=== PATIENT | female | born 2005 | race Hispanic/Latino ===

== ENCOUNTER 2025-08-12 01:30 | Emergency (ER) | payer SELFPAY ==
[~2025-08-12] VITALS: Ht 157.5 cm; Wt 68.0 kg
--- NOTE | 2025-08-12 01:33 | NUR ---
UA CUP PROVIDED
[2025-08-12 01:46] VITALS: TEMP 97.8
[2025-08-12] MEDS: 0.9%NACL 1000ML 1,000 ML IV SCH (02:39)
[2025-08-12 02:48] LABS: IMMATURE GRANULOCYTE ABSOLUTE 0.03 K/uL (0-1); NUCLEATED RED BLOOD CELLS 0.0 % (0.0-0.19); PLATELET COUNT (AUTO) 317 K/uL (130-400); RED BLOOD CELL COUNT(AUTO) 4.20 MIL/uL (4.00-5.50); RED CELL DISTRIBUTION WIDTH 12.5 % (11.0-15.5); WHITE BLOOD COUNT (AUTO) 10.0 K/uL (4.8-10.8)
[2025-08-12 02:51] LABS: APPEARANCE,URINE CLEAR (CLEAR); GLUCOSE, URINE (UA) NEGATIVE (NEGATIVE); LEUKOCYTE ESTERASE ,URINE NEGATIVE Leu/uL (NEGATIVE); NITRATE,URINE NEGATIVE (NEGATIVE); OCCULT BLOOD,URINE NEGATIVE (NEGATIVE)
[2025-08-12 02:52] LABS: ADD UA MICROSCOPIC NO
[2025-08-12 02:53] LABS: HCG,QUALITATIVE URINE NEGATIVE (NEGATIVE)
[2025-08-12 02:57] LABS: CREATININE 0.6 mg/dL (0.5-1.0); GLOMERULAR FILTR. RATE CALC 133.0 mL/min (>90); GLUCOSE,RANDOM 89.0 mg/dL (70-105); SODIUM SERUM 140.0 mmol/L (136-145); UREA NITROGEN, BLOOD 13.0 mg/dL (7-18)
--- NOTE | 2025-08-12 03:15 | ERN ---
General Chief Complaint: Hip Pain/Injury Stated Complaint: RT HIP PAIN Time Seen by MD: 01:32 History of Present Illness Initial Comments 19-year-old female no past medical history remarkable presents to inpatient with the complaints of right hip pain. Patient states she is having hip pain for the past 24-48 hours and she only took Tylenol for the pain. She states that she has been having dysuria and pressure in her lower right abdomen. Denies any trauma to the abdomen. Denies any fever. Denies any nausea vomiting diarrhea. No similar symptoms before in the past. Allergies: Coded Allergies: No Known Allergies (Unverified Allergy, Unknown, 08/12/25) Past Medical History Past Medical History: No Pertinent History Past Surgical History: None Female( History) LMP: Aug 02, 2025 Gastrointestinal/Abdominal: (+) abdominal pain Genitourinary: (+) dysuria, (+) pain Physical Exam General Appearance: (+) no apparent distress Orientation: (+) alert, (+) oriented x 3 Head/Face Trauma: No Eye: bilateral eye normal inspection, bilateral eye PERRL, bilateral eye EOMI Ear, Nose, Throat: (+) hearing grossly normal, (+) normal ENT inspection, (+) moist mucous membraine Neck: (+) normal inspection Respiratory: (+) chest non-tender, (+) lungs clear Heart: (+) regular; (-) murmur Vascular: (+) no edema Gastrointestinal: (+) soft, (+) tender (Right lower quadrant, right CVA tenderness), (+) guarding Skin: (+) normal color; (-) rash Results Laboratory and Microbiology Lab and Micro Result Laboratory Tests Test 08/12/25 01:00 08/12/25 01:35 Urine Color LIGHT-YELLOW (YELLOW) Urine Appearance CLEAR (CLEAR) Urine pH 6.0 (5.0-8.0) Urine Specific [place] 1.027 (1.001-1.031) Urine Protein NEGATIVE mg/dL (NEGATIVE) Urine Glucose (UA) NEGATIVE mg/dL (NEGATIVE) Urine Ketones NEGATIVE mg/dL (NEGATIVE) Urine Occult Blood NEGATIVE (NEGATIVE) Urine Nitrate NEGATIVE (NEGATIVE) Urine Bilirubin NEGATIVE mg/dL (NEGATIVE) Urine Urobilinogen 0.2 mg/dL (0.2-1.0) Urine Leukocyte Esterase NEGATIVE Susi/uL Urine HCG, Qualitative NEGATIVE (NEGATIVE) White Blood Count 10.0 K/uL (4.8-10.8) Red Blood Count 4.20 MIL/uL (4.00-5.50) Hemoglobin 13.0 g/dL (12.0-16.0) Hematocrit 38.6 % (36-48) Mean Corpuscular Volume 91.9 fL (80-100) Mean Corpuscular Hemoglobin 31.0 pg (27.0-33.0) Mean Corpuscular Hemoglobin Concent 33.7 g/dL (32.0-36.0) Red Cell Distribution Width 12.5 % (11.0-15.5) Platelet Count 317 K/uL (130-400) Mean Platelet Volume 8.9 fL (7.5-10.5) Immature Granulocyte % (Auto) 0.3 % (0-1) Neutrophils (%) (Auto) 64.3 % (40.0-77.0) Lymphocytes (%) (Auto) 25.5 % (21.0-51.0) Monocytes (%) (Auto) 8.6 % (3.0-13.0) Eosinophils (%) (Auto) 0.9 % (0.0-8.0) Basophils (%) (Auto) 0.4 % (0.0-5.0) Neutrophils # (Auto) 6.4 K/uL (1.8-7.7) Lymphocytes # (Auto) 2.6 K/uL (1.0-4.8) Monocytes # (Auto) 0.9 K/uL (0.1-1.0) Eosinophils # (Auto) 0.09 K/uL (0.00-0.70) Basophils # (Auto) 0.04 K/uL (0.00-0.20) Absolute Immature Granulocyte (auto 0.03 K/uL (0-1) Nucleated Red Blood Cells 0.0 % (0.0-0.19) Sodium Level 140 mmol/L (136-145) Potassium Level 3.9 mmol/L (3.5-5.1) Chloride Level 103 mmol/L (101-111) Carbon Dioxide Level 30 mmol/L (21-32) Blood Urea Nitrogen 13 mg/dL (7-18) Creatinine 0.6 mg/dL (0.5-1.0) Glomerular Filtration Rate Calc 133 mL/min (>90) Random Glucose 89 mg/dL (70-105) Total Calcium 8.4 mg/dL (8.5-10.1) L Lipase 62 U/L (16-77) EKG/XRAY/US/CT/MRI CT Scan Comment MPRESSIONS: No acute process in the abdomen or pelvis. No renal or ureteric calculus. No acute appendicitis. Large bowel loops are filled with fecal matter, a component of constipation. Trace free fluid in the cul-de-sac, which could be physiological. Correlation with the patient's menstrual history and ultrasound of the pelvis is recommended. MDM 19-year-old female here for evaluation of right lower quadrant pain. Concerning for dysuria versus appendicitis versus kidney stone. We will get appropriate labs and imaging and reassess. Disposition pending results of labs and imaging. ED Course Orders Procedure Category Date Status Time Urinalysis Profile LAB 08/12/25 Complete 01:40 ,Urine Test LAB 08/12/25 Complete 01:40 Cbc With Differential LAB 08/12/25 Complete 02:10 Basic Metabolic Panel LAB 08/12/25 Complete 02:10 Ct Abdomen/Pelvis W/O CT 08/12/25 Resulted Contrast 02:10 Lipase LAB 08/12/25 Complete 02:10 Ketorolac PHA 08/12/25 Complete Tromethamine 15mg/Ml 02:30 0.9%Nacl 1000ml (Ns PHA 08/12/25 In Process 1000ml) 02:30 Current Medications Medications (Trade) Dose Ordered Sig/Daniella Route PRN Reason Start Time Stop Time Status Last Admin Dose Admin Ketorolac Tromethamine (toRADol) 15 mg ONCE ONCE IV 08/12/25 02:30 08/12/25 02:31 DC 08/12/25 02:40 Sodium Chloride 1,000 ml @ 0 mls/hr Q0M IV 08/12/25 02:30 09/11/25 02:29 08/12/25 02:39 Vital Signs Date Time Temp Pulse Resp B/P (MAP) Pulse Ox O2 Delivery O2 Flow Rate FiO2 08/12/25 01:46 97.9 83 18 134/59 97 Room Air* 0 21 08/12/25 01:31 97.0 74 18 127/73 97 Room Air 4:10 a.m.: CT scan shows constipation. No acute signs of appendicitis. No obvious ureteral stone. We will discharge home at this time. Advised on concerning signs and symptoms for which to return to the emergency room. We will have patient follow up with the PCP all labs and imaging reviewed with the patient. We will discharge home on MiraLax and naproxen. All questions answered at this time. Discharge DX & DISP Disposition: Discharge Departure Impression: Primary Impression: Constipation Additional Impression: Abdominal pain Condition: Stable Scripts Naproxen (Naproxen) 250 Mg Tablet 1 TAB PO BID for pain for 15 Days, #30 TAB 0 Refills Prov: JENNYFER JIMENEZ MD 08/12/25 Polyethylene Glycol 3350 (Miralax) 17 Gram Powd.pack 1 PACKET PO DAILY for constipation for 5 Days, #5 PACKET 0 Refills dissolve in water Prov: JENNYFER JIMENEZ MD 08/12/25 Referrals: SELF,REFERRAL (PCP) JENNYFER JIMENEZ MD Aug 12, 2025 03:15
--- NOTE | 2025-08-12 03:35 | HMCIMG ---
EXAM: CT Abdomen and Pelvis without IV contrast. CLINICAL HISTORY: Right lower quadrant abdominal pain. Blood in urine. Rule out a kidney stone. TECHNIQUE: Thin collimated axial CT images of the abdomen and pelvis were obtained, with sagittal and coronal reformatted images also submitted. A CT scan is done according to ALARA (As Low As Reasonably Achievable). CONTRAST: None. COMPARISON: None. FINDINGS: Mild subsegmental atelectasis in the left lung base. No focal abnormality within the liver, gallbladder, pancreas, spleen, adrenals, or kidneys. Large bowel loops are filled with fecal matter, a component of constipation. There is no obvious bowel wall thickening. Bowel loops are normal in caliber without evidence of obstruction or ileus. The appendix is normal. There is no abnormality within the urinary bladder. Unremarkable reproductive organs. No lymphadenopathy. Trace free fluid in the cul-de-sac. There is no acute osseous abnormality. IMPRESSIONS: No acute process in the abdomen or pelvis. No renal or ureteric calculus. No acute appendicitis. Large bowel loops are filled with fecal matter, a component of constipation. Trace free fluid in the cul-de-sac, which could be physiological. Correlation with the patient's menstrual history and ultrasound of the pelvis is recommended. /Jax
[2025-08-12] MEDS ORDERED: POLY17PO4 PO (04:09)
[2025-08-12] MEDS ORDERED: NAPR-1196 PO (04:09)
[2025-08-12 04:25] VITALS: BP 128/62; PULSE 78; RESP 18; O2SAT 97
== END 2025-08-12 04:29 | disposition home or self-care (01) ==
LOC: EDH 01:30
DX: K59.00 Constipation, unspecified (principal); M25.551 Pain in right hip; Z86.73 Personal history of transient ischemic attack (TIA), and cerebral infarction without residual deficits
CPT/HCPCS: 99285; 96374; 74176; 96361; 80048; 83690; 85025; 81003; 81025; 36415; J1885; J7030